=== PATIENT | female | born 1980 | race Two or more races ===

== ENCOUNTER 2024-01-05 22:22 | Emergency (ER) | payer MEDICAID, OTHER ==
[~2024-01-05] VITALS: Ht 157.5 cm; Wt 94.5 kg
[2024-01-05 23:28] VITALS: PULSE 83; RESP 16; O2SAT 98
--- NOTE | 2024-01-06 00:13 | DVH ---
XY R HAND 3 VIEW XRAY, INDICATION: right 3rd finger pain TECHNICAL DATA: Frontal, oblique and lateral views were obtained of the right hand. COMPARISON: None FINDINGS: No fracture is identified. Joint spaces are maintained. Alignment is anatomic. Soft tissues are withi n normal limits. IMPRESSION: No acute fracture or dislocation of the right hand.
[2024-01-06] MEDS ORDERED: IBUP-1456 PO (00:25)
--- NOTE | 2024-01-06 00:25 | ED.PDOC ---
Musculoskeletal HPI Comments 33-year-old female presents to ER with complaints of right 3rd finger pain x1 day. Patient reports that she accidentally hit her right 3rd finger against the back of her car seat while she was cleaning her car at 5:00 p.m. prior to arrival to ER and has been experiencing pain and inability to fully extend her right 3rd finger since. She rates her current pain an 8/10 to right 3rd finger without radiation. Denies use of medications for current symptoms. Denies numbness/tingling, wrist pain or any further symptoms/complaints Chief Complaint: Upper Extremity Time Seen by MD: 23:07 Primary Care Provider: ROBERT Reviewed Notes: Nurses Notes, Medications, Allergies Allergies: Coded Allergies: NO KNOWN ALLERGIES (Unverified , 01/05/24) Home Meds Active Scripts Ibuprofen (Ibuprofen) 800 Mg Tab, 1 TAB PO TID PRN, #30 TAB 0 Refills Prov:BRAEDEN WEST 01/06/24 Information Source: Patient Mode of Arrival: Ambulatory Past Medical History PAST MEDICAL HISTORY: Denies Surgical History: Denies all surgeries Family History Family History: Unknown Social History Lives In: Home Constitutional: denies: chills, diaphoresis, fatigue, fever, malaise, sweats, weakness, others EENTM: denies: blurred vision, double vision, ear bleeding, ear discharge, ear drainage, ear pain, ear ringing, eye pain, eye redness, hearing loss, mouth pain, mouth swelling, nasal discharge, nose bleeding, nose congestion, nose pain, photophobia, tearing, throat pain, throat swelling, voice changes, others Respiratory: denies: cough, hemoptysis, orthopnea, SOB at rest, shortness of breath, SOB with excertion, stridor, wheezing, others Cardiovascular: denies: chest pain, dizzy spells, diaphoresis, Dyspnea on exertion, edema, irregular heart beat, left arm pain, lightheadedness, palpitations, PND, syncope, others Gastrointestinal: denies: abdomen distended, abdominal pain, blood streaked bowels, constipated, diarrhea, dysphagia, difficulty swallowing, hematemesis, melena, nausea, poor appetite, poor fluid intake, rectal bleeding, rectal pain, vomiting, others Genitourinary: denies: abnormal vagina bleeding, burning, dyspareunia, dysuria, flank pain, frequency, hematuria, incontinence, pain, , vagina discharge, urgency, others Neurological: denies: dizziness, fainting, headache, left sided numbness, left sided weakness, numbness, paresthesia, pre-existing deficit, right sided numbness, right sided weakness, seizure, speech problems, tingling, tremors, weakness, others Musculoskeletal: reports: others (As stated in HPI) Integumetry: denies: bruises, change in color, change in hair/nails, dryness, laceration, lesions, lumps, rash, wounds, others Allergic/Immunocompromised: denies: Difficulty Healing, Frequent Infections, Hives, Itching, others Hematologic/Lymphatic: denies: anemia, blood clots, easy bleeding, easy bruising, swollen glands, others Endocrine: denies: excessive hunger, excessive sweating, excessive thirst, excessive urination, flushing, intolerance to cold, intolerance to heat, unexplained weight gain, unexplained weight loss, others Psychiatric: denies: anxiety, bipolar disorder, depression, hopeless, panic disorder, schizophrenia, sleepless, suicidal, others Physical Exam General Appearance: No Apparent Distress, Obese HEENT: PERRL/EOMI Neck: Full Range of Motion, Non-Tender, Normal Respiratory: Chest Non-Tender, Lungs Clear, No Accessory Muscle Use, No Respiratory Distress, Normal Breath Sounds Cardiovascular: No Murmur, No Gallop, Regular Rate/Rhythm Breast Exam: Deferred Gastrointestinal: NOT DONE Genitalia: Deferred Pelvic: Deferred Rectal: Deferred Extremities: Normal capillary refill Neurologic: Alert, No Motor Deficits, Normal Affect, Normal Mood, No Sensory Deficits Cerebellar Function: Normal Reflexes: Normal Skin: Dry, Warm, Other (TTP/mild swelling noted to right 3rd DIP joint. Right 3rd DIP joint is noted to be mildly flexed inwards and patient is unable to fully extend. No further skin changes noted. Patient able to move all fingers of right hand. Pulses intact) Peripheral Pulses: 2+ Radial (R), 2+ Radial (L), 2+ Brachial (R), 2+ Brachial (L) Lymphatic: No Adenopathy Was a procedure done? Was a procedure done?: No Sedation Sedation?: No Differential Diagnosis EXT Differential Diagnosis: Fracture, Dislocation, Laceration, Neurovascular injury X-Ray, Labs, Meds, VS Vital Signs Date Time Temp Pulse Resp B/P (MAP) Pulse Ox O2 Delivery O2 Flow Rate FiO2 01/05/24 23:28 83 16 98 Room Air* 0 21 01/05/24 23:28 98.1 88 17 138/92 (107) 98 98.1 01/05/24 22:56 98.1 87 16 145/96 (112) 98 PATIENT: LINDSAY CHASECT: [id number]: [id number] : 1980 LOC: ER ROOM / BED: / AGE / SEX: 43 / F ADM STATUS: REG ER SERVICE 06 ORDERING PHYSICIAN: BRAEDEN WEST PROCEDURE(s): RHAN - R HAND 3 VIEW XRAY REASON: right 3rd finger pain ORDER NUMBER(s): [id number], ACCESSION NUMBER(s): [id number] XY R HAND 3 VIEW XRAY, INDICATION: right 3rd finger pain TECHNICAL DATA: Frontal, oblique and lateral views were obtained of the right hand. COMPARISON: None FINDINGS: No fracture is identified. Joint spaces are maintained. Alignment is anatomic. Soft tissues are within normal limits. IMPRESSION: No acute fracture or dislocation of the right hand. ATED BY: WILFRID MONSON DO DICTATED DATE/TIME: 01/06/2410 SIGNED BY: WILFRID MONSON DO SIGNED DATE/TIME: 01/06/2410 CC: Right hand x-ray reviewed Toradol 60 mg IM ordered Patient neurovascularly intact Splint applied to right 3rd finger with right 3rd DIP joint in slight hyperextension Advised on continued use of finger splint in this position for six weeks Patient provided information with regards to nearest hand surgeons and advised to f/u within 7-10 days Advised to follow up with PCP in 1-2 days Patient verbalized understanding and agreeable with current plan of care Advised to return to ER immediately if symptoms worsen Time of 1ST Reevaluation: 00:02 Reevaluation 1ST: N/A Patient Education/Counseling: Diagnosis, Treatment, Prognosis, Need For Follow Up Family Education/Counseling: No Family Present Departure 1 Departure Time of Disposition: 00:22 Impression: Primary Impression: Mallet finger of right hand Disposition: 01 HOME / SELF CARE / HOMELESS Condition: Stable e-Prescriptions Ibuprofen (Ibuprofen) 800 Mg Tab 1 TAB PO TID PRN, #30 TAB 0 Refills Prov: BRAEDEN WEST 01/06/24 Discharged With: Friend Critical Care Note Critical Care Time?: No Stability Stability form required: No Heart Score Heart Score: Heart Score Response (Comments) Value History N/A 0 EKG N/A 0 Age N/A 0 Risk Factors N/A 0 Troponin N/A 0 Total 0 BRAEDEN WEST Jan 06, 2024 00:25
[2024-01-06] MEDS: KETOROLAC TROMETH 60MG/2ML VIAL IM ONE (01:16)
[2024-01-06 01:40] VITALS: BP 126/78; PULSE 78; RESP 18; TEMP 98.7; O2SAT 98
== END 2024-01-06 01:41 | disposition home or self-care (01) ==
LOC: ER 22:22
DX: M20.011 Mallet finger of right finger(s) (principal)
CPT/HCPCS: 29130; 73130; 96372; 99283; J1885